=== PATIENT | female | born 1985 | race African-American/Black ===

== ENCOUNTER 2017-02-13 14:54 | Emergency (ER) | payer OTHER ==
[~2017-02-13] VITALS: Ht 160 cm; Wt 52.5 kg
[2017-02-13 15:37] LABS: HEMATOCRIT 37.7 % (36.0-46.0); MCHC 30.5 G/DL (30.0-36.0); MCV 75.2 FL (83-99); MEAN PLAT.VOLUME 10.7 uM^3 (9.5-12.4); PLATELET COUNT 260 K/uL (156-360); RBC DIS.WIDTH-CV 13.2 % (11.8-14.6); RBC DIS.WIDTH-SD 35.7 % (39-53); RED BLOOD COUNT 5.01 M/uL (3.80-5.20); WHITE BLOOD COUNT 9.9 K/uL (4.1-10.2)
[2017-02-13 15:46] LABS: CHLORIDE 112 mEq/L (99-109); POTASSIUM 3.5 mEq/L (3.7-5.4); SODIUM 141 mEq/L (136-147)
[2017-02-13 15:47] LABS: MAGNESIUM 1.9 mg/dL (1.3-2.7)
[2017-02-13 15:48] LABS: GLUCOSE 79 mg/dL (70-99)
[2017-02-13 15:49] LABS: ANION GAP 8 MEQ/L (2-14)
[2017-02-13 15:52] LABS: UREA NITROGEN (BUN) 6 mg/dL (9-23)
[2017-02-13 15:54] LABS: GFR ESTIMATE (CALCULATED) > 59 mL/min/
[2017-02-13 16:00] LABS: TROP-I INTERPRETATION NEGATIVE; TROPONIN-I < 0.01 ng/mL (0.0-0.30)
[2017-02-13 17:38] LABS: TROP-I INTERPRETATION NEGATIVE; TROPONIN-I < 0.01 ng/mL (0.0-0.30)
[2017-02-13 18:19] VITALS: BP 138/92
== END 2017-02-13 18:20 | disposition home or self-care (01) ==
LOC: EME 14:54
PROVIDERS: Physician Assistant; Physician Assistant Medical
DX: R07.9 Chest pain, unspecified (principal); R06.02 Shortness of breath; R42 Dizziness and giddiness; L30.9 Dermatitis, unspecified; J45.909 Unspecified asthma, uncomplicated; I10 Essential (primary) hypertension; Z86.73 Personal history of transient ischemic attack (TIA), and cerebral infarction without residual deficits
CPT/HCPCS: 71020; 80048; 83735; 84484; 85027; 93005; 99281; 99284; Q0177

== ENCOUNTER 2017-03-01 09:39 | Emergency (ER) | payer OTHER ==
[~2017-03-01] VITALS: Ht 160 cm; Wt 50.2 kg
[2017-03-01] MEDS ORDERED: LORTAB 5-325 M1 EACH PO (12:37)
[2017-03-01] MEDS ORDERED: NAPROSYN500 MG PO (12:37)
[2017-03-01] MEDS ORDERED: ZOFRAN ODT4 MG PO (12:38)
[2017-03-01 12:55] VITALS: BP 124/81
== END 2017-03-01 12:55 | disposition home or self-care (01) ==
LOC: EME 09:39
DX: B34.9 Viral infection, unspecified (principal); R11.2 Nausea with vomiting, unspecified; Z87.42 Personal history of other diseases of the female genital tract
CPT/HCPCS: 99281; 99284; J1885

== ENCOUNTER 2017-03-26 13:52 | Emergency (ER) | payer OTHER ==
[~2017-03-26] VITALS: Ht 160 cm; Wt 48.6 kg
[~2017-03-26 13:52] MED LIST: LORTAB 5-325 M1 EACH PO; NAPROSYN500 MG PO; ZOFRAN ODT4 MG PO
[2017-03-26 14:58] LABS: HEMATOCRIT 40.5 % (36.0-46.0); MCH 23.2 PG (29.0-34.0); MCHC 30.6 G/DL (30.0-36.0); MCV 75.8 FL (83-99); MEAN PLAT.VOLUME 10.4 uM^3 (9.5-12.4); PLATELET COUNT 226 K/uL (156-360); RBC DIS.WIDTH-CV 13.8 % (11.8-14.6); RBC DIS.WIDTH-SD 37.3 % (39-53); RED BLOOD COUNT 5.34 M/uL (3.80-5.20); WHITE BLOOD COUNT 7.9 K/uL (4.1-10.2)
[2017-03-26 15:06] LABS: CHLORIDE 110 mEq/L (99-109); POTASSIUM 3.7 mEq/L (3.7-5.4); SODIUM 139 mEq/L (136-147)
[2017-03-26 15:09] LABS: GLUCOSE 82 mg/dL (70-99)
[2017-03-26 15:10] LABS: ANION GAP 9 MEQ/L (2-14); TOTAL BILIRUBIN 0.7 mg/dL (0.0-1.0)
[2017-03-26 15:12] LABS: ALKALINE PHOSPHATASE 43 IU/L (3-129); SERUM ETHYL ALCOHOL < 10 mg/dL
[2017-03-26 15:13] LABS: GFR ESTIMATE (CALCULATED) > 59 mL/min/
[2017-03-26 15:14] LABS: DIRECT BILIRUBIN 0.3 mg/dL (0.0-0.3); UREA NITROGEN (BUN) 9 mg/dL (9-23)
[2017-03-26 15:16] LABS: LIPASE 19 U/L (1.0-51.0)
[2017-03-26 15:21] LABS: TROP-I INTERPRETATION NEGATIVE; TROPONIN-I < 0.01 ng/mL (0.0-0.30)
[2017-03-26] MEDS ORDERED: ZYPREXA5 MG PO (16:21)
[2017-03-26 16:28] LABS: ADD MIUA? YES; BILIRUBIN NEGATIVE; BLOOD NEGATIVE; COLOR YELLOW ((YELLOW)); GLUCOSE (STRIP) NEGATIVE; KETONES 80; LEUKOCYTES NEGATIVE; NITRITE NEGATIVE; PROTEIN (STRIP) 30; SPECIFIC GRAVITY 1.027 (1.000-1.030); UROBILINOGEN 0.2 MG/DL (0.2-1.0)
[2017-03-26 16:35] VITALS: BP 137/88
[2017-03-26 16:50] LABS: AMPHETAMINE NEGATIVE (500 ng/mL); BARBITURATES NEGATIVE (200 ng/mL); BENZODIAZEPINES NEGATIVE (150 ng/mL); COCAINE NEGATIVE (150 ng/mL); INTERNAL CONTROLS VALID? YES; METHADONE NEGATIVE (200 ng/mL); METHAMPHETAMINE NEGATIVE (500 ng/mL); OPIATES (MORPHINE) NEGATIVE (100 ng/mL); OXYCODONE NEGATIVE (100 ng/mL); PHENCYCLIDINE NEGATIVE (25 ng/mL); PROPOXYPHENE NEGATIVE (300 ng/mL); THC CANNABINOIDS PRESUMPTIVE POSITIVE (50 ng/mL); TRICYCLIC ANTIDEPRESSANTS NEGATIVE (300 ng/mL)
[2017-03-26 17:17] LABS: ADD MEDTOX COMMENT Y
[2017-03-26 17:18] LABS: BACTERIA 2+ /HPF; EPITHELIAL CELLS 2+ /HPF; MUCUS 4+ /LPF; RED BLOOD CELLS 0-5 /HPF (0-5); UCUL ADDED? NO; WHITE BLOOD CELLS 0-5 /HPF (0-5)
== END 2017-03-26 16:43 | disposition home or self-care (01) ==
LOC: EME 13:52
PROVIDERS: Emergency Medicine
DX: F32.9 Major depressive disorder, single episode, unspecified (principal); E87.8 Other disorders of electrolyte and fluid balance, not elsewhere classified; F31.32 Bipolar disorder, current episode depressed, moderate; T43.206A Underdosing of unspecified antidepressants, initial encounter; Z91.128 Patient's intentional underdosing of medication regimen for other reason; Z86.73 Personal history of transient ischemic attack (TIA), and cerebral infarction without residual deficits
CPT/HCPCS: 80048; 80076; 81003; 83690; 84484; 84999; 85027; 90839; 93005; 99281; 99284; G0480

== ENCOUNTER 2017-07-23 11:17 | Emergency (ER) | payer SELFPAY ==
[~2017-07-23] VITALS: Ht 160 cm; Wt 50.6 kg
[~2017-07-23 11:17] MED LIST changes: +ZYPREXA5 MG PO
[2017-07-23] MEDS ORDERED: MEDROL DOSEPAK4 MG PO (13:39)
[2017-07-23] MEDS ORDERED: NAPROSYN500 MG PO (13:39)
[2017-07-23 13:49] VITALS: BP 131/99
== END 2017-07-23 13:49 | disposition home or self-care (01) ==
LOC: EME 11:17
DX: J06.9 Acute upper respiratory infection, unspecified (principal); R19.7 Diarrhea, unspecified
CPT/HCPCS: 87651 90; 99281; 99284